=== PATIENT | female | born 1980 | race Two or more races ===

== ENCOUNTER 2018-11-01 09:40 | Emergency (ER) | payer OTHER ==
[~2018-11-01] VITALS: Ht 152.4 cm; Wt 88.5 kg
== END 2018-11-01 11:08 | disposition home or self-care (01) ==
LOC: ER 09:40
DX: J00 Acute nasopharyngitis [common cold] (principal)

== ENCOUNTER 2022-10-20 10:44 | Emergency (ER) | payer OTHER ==
[~2022-10-20] VITALS: Ht 152.4 cm; Wt 97.5 kg
== END 2022-10-20 13:38 | disposition home or self-care (01) ==
LOC: ER 10:44
DX: S60.212A Contusion of left wrist, initial encounter (principal); S60.052A Contusion of left little finger without damage to nail, initial encounter; X58.XXXA Exposure to other specified factors, initial encounter; Y93.9 Activity, unspecified; Y92.89 Other specified places as the place of occurrence of the external cause; Y99.8 Other external cause status; Z88.6 Allergy status to analgesic agent